=== PATIENT | female | born 1960 | race Caucasian/White ===

== ENCOUNTER 2023-12-05 08:56 | Observation (INO) | payer BC ==
--- NOTE | 2023-12-05 09:38 | ED ---
General Adult HPI - General Chief complaint: Neuro Symptoms/Deficit Stated complaint: Dizziness Time Seen by Provider: 12/05/23 09:10 Source: patient, RN notes reviewed, old records reviewed Mode of arrival: wheelchair Limitations: no limitations - History of Present Illness Initial comments: This is a 63-year-old female who presents to the emergency department with no significant past medical history. Patient comes in today stating that for the last couple of months she has intermittent episodes of squiggly lines in her left eye. Patient states last night it happened again and then went away so she went to bed. Patient states when she woke up this morning she was extremely dizzy and she felt like she was moving relative to the room. Patient also states it made her very nauseated. Patient also complained of chest palpitations but no chest pain and no difficulty breathing or shortness of breath. Patient also complained of decreased sensation on the left side of her face. Patient denied any facial droopiness. Patient had no slurred speech according to the . Patient denied any weakness or numbness of any of her extremities. Patient denied any recent fever chills or cough - Related Data Allergies Allergy/AdvReac Type Severity Reaction Status Date / Time codeine Allergy Rash/Hives Verified 12/05/23 09:06 tetracycline Allergy Rash/Hives Verified 12/05/23 09:06 Review of Systems ROS Statement: Those systems with pertinent positive or pertinent negative responses have been documented in the HPI. ROS Other: All systems not noted in ROS Statement are negative. Past Medical History Past Medical History: No Reported History History of Any Multi-Drug Resistant Organisms: None Reported Past Surgical History: Section Additional Past Surgical History / Comment(s): colon surgery, sinus surgery Past Psychological History: No Psychological Hx Reported Smoking Status: Current every day smoker Past Alcohol Use History: None Reported Past Drug Use History: None Reported General Exam - General Exam Comments Initial Comments: GENERAL: Patient is well-developed and well-nourished. Patient is nontoxic and well-hydr ated and is in mild distress. ENT: Neck is soft and supple. No significant lymphadenopathy is noted. Oropharynx is clear. Moist mucous membranes. Neck has full range of motion without eliciting any pain. EYES: The sclera were anicteric and conjunctiva were pink and moist. Extraocular movements were intact and pupils were equal round and reactive to light. Eyelids were unremarkable. PULMONARY: Unlabored respirations. Good breath sounds bilaterally. No audible rales rhonchi or wheezing was noted. CARDIOVASCULAR: There is a regular rate and rhythm without any murmurs gallops or rubs. ABDOMEN: Soft and nontender with normal bowel sounds. SKIN: Skin is clear with no lesions or rashes and otherwise unremarkable. NEUROLOGIC: Patient is alert and oriented x3. Cranial nerves II through XII are grossly intact. Motor is intact. Normal speech, volume and content. Symmetrical smile. Patient had an NIH of 1 with decrease sensation to the left side of her face MUSCULOSKELETAL: Normal extremities with adequate strength and full range of motion. No lower extremity swelling or edema. No calf tenderness. LYMPHATICS: No significant lymphadenopathy is noted PSYCHIATRIC: Normal psychiatric evaluation. Limitations: no limitations Course Vital Signs 12/05/23 12/05/23 09:03 10:03 Temperature 97.8 F Pulse Rate 87 77 Respiratory 16 18 Rate Blood Pressure 168/99 150/88 O2 Sat by Pulse 99 97 Oximetry Medical Decision Making - Medical Decision Making EKG is interpreted by myself but EKG shows a sinus rhythm at 75 bpm parables 129 QRS is 90 QT interval is 380 QTc is 408. Patient's EKG shows no ST segment elevation or depression. Patient does have 1 PAC. Was pt. sent in by a medical professional or institution (, PA, JAMMER HOOKER, urgent care, hospital, or half-way...) When possible be specific @ -No Did you speak to anyone other than the patient for history (EMS, parent, family, police, friend...)? What history was obtained from this source @ -No Did you review nursing and triage notes (agree or disagree)? Why? @ -I reviewed and agree with nursing and triage notes Were old charts reviewed (outside hosp., previous admission, EMS record, old EKG, old radiological studies, urgent care reports/EKG's, half-way records)? Report findings @ -No old charts were reviewed Differential Diagnosis (chest pain, altered mental status, abdominal pain women, abdominal pain men, vaginal bleeding, weakness, fever, dyspnea, syncope, headache, dizziness, GI bleed, back pain, seizure, CVA, palpatations, mental health, musculoskeletal)? @ -Differential CVA Ischemic stroke, hemorrhagic stroke, brain tumor, atypical migraine, Wernicke's encephalopathy, seizure, multiple sclerosis, meningitis, encephalitis, hypoglycemia, Guillain-Quan, electrolytes disturbance, myasthenia gravis.... This is not meant to be an all-inclusive list EKG interpreted by me (3pts min.). @ -As above X-rays interpreted by me (1pt min.). @ -Chest x-ray shows no acute normality CT interpreted by me (1pt min.). @ -CT of the brain shows no acute abnormality. CT angio of the head neck showed no acute abnormality U/S interpreted by me (1pt. min.). @ -None done What testing was considered but not performed or refused? (CT, X-rays, U/S, labs)? Why? @ -None What meds were considered but not given or refused? Why? @ -None Did you discuss the management of the patient with other professionals (professionals i.e. , PA, JAMMER HOOKER, lab, RT, psych nurse, social media community manager, certified medical coder, teacher, [employer] operations staff officer, community case manager)? Give summary @ -I spoke with Dr. Wood the neurointerventionist and he stated the patient should be admitted and he did not see any reason for any intervention at this time. Patient was admitted to Dr. Stark Was smoking cessation discussed for >3mins.? @ -No Was critical care preformed (if so, how long)? @ -No Were there social determinants of health that impacted care today? How? (Homelessness, low income, unemployed, alcoholism, drug addiction, transportation, low edu. Level, literacy, decrease access to med. care, skilled nursing, r ehab)? @ -No Was there de-escalation of care discussed even if they declined (Discuss DNR or withdrawal of care, Hospice)? DNR status @ -No What co-morbidities impacted this encounter? (DM, HTN, Smoking, COPD, CAD, Cancer, CVA, ARF, Chemo, Hep., AIDS, mental health diagnosis, sleep apnea, morbid obesity)? @ -None Was patient admitted / discharged? Hospital course, mention meds given and route, prescriptions, significant lab abnormalities, going to OR and other pertinent info. @ -Patient was given Antivert and Reglan because of the nausea and vertigo like symptoms. Patient did state this seemed to help. I spoke with Dr. Stark he agreed to admit the patient to the patient a consult to neurology. Patient numbness to the left side of her face was improved Undiagnosed new problem with uncertain prognosis? @ -No Drug Therapy requiring intensive monitoring for toxicity (Heparin, Nitro, Ins ulin, Cardizem)? @ -No Were any procedures done? @ -No Diagnosis/symptom? @ -TIA Acute, or Chronic, or Acute on Chronic? @ -Acute Uncomplicated (without systemic symptoms) or Complicated (systemic symptoms)? @ -Complicated Side effects of treatment? @ -No Exacerbation, Progression, or Severe Exacerbation? @ -No Poses a threat to life or bodily function? How? (Chest pain, [place], [place], pneumonia, PE, COPD, DKA, ARF, appy, cholecystitis, CVA, Diverticulitis, Homicidal, Suicidal, threat to staff... and all critical care pts) @ -No Diagnosis/symptom? @ -Palpitation Acute, or Chronic, or Acute on Chronic? @ -Acute Uncomplicated (without systemic symptoms) or Complicated (systemic symptoms)? @ -Complicated Side effects of treatment? @ -None Exacerbation, Progression, or Severe Exacerbation] @ -No Poses a threat to life or bodily function? @ -Yes this could lead to an arrhythmia and endorgan dysfunction Diagnosis/symptom? @ -Vertigo Acute, or Chronic, or Acute on Chronic? @ -Acute Uncomplicated (without systemic symptoms) or Complicated (systemic symptoms)? @ -Uncomplicated Side effects of treatment? @ -None Exacerbation, Progression, or Severe Exacerbation] @ -No Poses a threat to life or bodily function? @ -No - Lab Data Result diagrams: 12/05/23 09:34 12/05/23 09:34 Lab Results 12/05/23 12/05/23 12/05/23 Range/Units 09:34 09:34 09:34 WBC 7.4 (3.8-10.6) k/uL RBC 5.23 (3.80-5.40) m/uL Hgb 15.0 (11.4-16.0) gm/dL Hct 45.9 (34.0-46.0) % MCV 87.7 (80.0-100.0) fL MCH 28.7 (25.0-35.0) pg MCHC 32.8 (31.0-37.0) g/dL RDW 13.9 (11.5-15.5) % Plt Count 322 (150-450) k/uL MPV 7.6 Neutrophils % 56 % Lymphocytes % 33 % Monocytes % 6 % Eosinophils % 3 % Basophils % 1 % Neutrophils # 4.1 (1.3-7.7) k/uL Lymphocytes # 2.5 (1.0-4.8) k/uL Monocytes # 0.4 (0-1.0) k/uL Eosinophils # 0.2 (0-0.7) k/uL Basophils # 0.0 (0-0.2) k/uL PT 10.8 (10.0-12.5) sec INR 1.0 (<1.2) APTT 26.5 (22.0-30.0) sec Sodium 140 (137-145) mmol/L Potassium 4.3 (3.5-5.1) mmol/L Chloride 111 H (98-107) mmol/L Carbon Dioxide 22 (22-30) mmol/L Anion Gap 7 mmol/L BUN 12 (7-17) mg/dL Creatinine 0.65 (0.52-1.04) mg/dL Est GFR (CKD-EPI)AfAm >90 (>60 ml/min/1.73 sqM) Est GFR (CKD-EPI)NonAf >90 (>60 ml/min/1.73 sqM) Glucose 106 H (74-99) mg/dL Calcium 9.9 (8.4-10.2) mg/dL Total Bilirubin 0.8 (0.2-1.3) mg/dL AST 20 (14-36) U/L ALT 12 (4-34) U/L Alkaline Phosphatase 80 (38-126) U/L Creatine Kinase 85 (30-135) U/L Troponin I (0.000-0.034) ng/mL Total Protein 7.0 (6.3-8.2) g/dL Albumin 4.5 (3.5-5.0) g/dL 12/05/23 Range/Units 09:34 WBC (3.8-10.6) k/uL RBC (3.80-5.40) m/uL Hgb (11.4-16.0) gm/dL Hct (34.0-46.0) % MCV (80.0-100.0) fL MCH (25.0-35.0) pg MCHC (31.0-37.0) g/dL RDW (11.5-15.5) % Plt Count (150-450) k/uL MPV Neutrophils % % Lymphocytes % % Monocytes % % Eosinophils % % Basophils % % Neutrophils # (1.3-7.7) k/uL Lymphocytes # (1.0-4.8) k/uL Monocytes # (0-1.0) k/uL Eosinophils # (0-0.7) k/uL Basophils # (0-0.2) k/uL PT (10.0-12.5) sec INR (<1.2) APTT (22.0-30.0) sec Sodium (137-145) mmol/L Potassium (3.5-5.1) mmol/L Chloride (98-107) mmol/L Carbon Dioxide (22-30) mmol/L Anion Gap mmol/L BUN (7-17) mg/dL Creatinine (0.52-1.04) mg/dL Est GFR (CKD-EPI)AfAm (>60 ml/min/1.73 sqM) Est GFR (CKD-EPI)NonAf (>60 ml/min/1.73 sqM) Glucose (74-99) mg/dL Calcium (8.4-10.2) mg/dL Total Bilirubin (0.2-1.3) mg/dL AST (14-36) U/L ALT (4-34) U/L Alkaline Phosphatase (38-126) U/L Creatine Kinase (30-135) U/L Troponin I <0.012 (0.000-0.034) ng/mL Total Protein (6.3-8.2) g/dL Albumin (3.5-5.0) g/dL Disposition Clinical Impression: Vertigo, Palpitations, TIA (transient ischemic attack) Disposition: ADMITTED IP TO THIS HOSP Referrals: Stephanie Mayers MD [Primary Care Provider] - 1-2 days Time of Disposition: 11:24
[2023-12-05 09:44] LABS: ALT 12 U/L (4-34); AST 20 U/L (14-36); African American GFR (CKD) >90 (>60 ml/min/1.73 sqM); Albumin 4.5 g/dL (3.5-5.0); Alkaline Phosphatase 80 U/L (38-126); Anion Gap 7 mmol/L; Blood Urea Nitrogen 12 mg/dL (7-17); Calcium 9.9 mg/dL (8.4-10.2); Carbon Dioxide 22 mmol/L (22-30); Chloride 111 mmol/L (98-107); Creatine Kinase 85 U/L (30-135); Glucose 106 mg/dL (74-99); Non-African American GFR(CKD) >90 (>60 ml/min/1.73 sqM); Potassium 4.3 mmol/L (3.5-5.1); Sodium 140 mmol/L (137-145); Total Bilirubin 0.8 mg/dL (0.2-1.3)
--- NOTE | 2023-12-05 09:50 | CT ---
FINDINGS: The brachiocephalic origins are widely patent and no significant stenosis. There is no significant stenosis of the common or internal carotid arteries within the neck. There is no stenosis of the vertebral arteries. Intracranially, there is no stenosis, segmental occlusion, sizable aneurysm sac or vascular malformat ion. IMPRESSION:. No significant abnormality seen. NASCET criteria was used in interpretation of this exam?
[2023-12-05 09:52] LABS: Partial Thromboplastin Time 26.5 sec (22.0-30.0); Prothrombin Time 10.8 sec (10.0-12.5)
[2023-12-05 09:53] LABS: Basophils % (A) 1 %; Eosinophils # (A) 0.2 k/uL (0-0.7); Eosinophils % (A) 3 %; HCT 45.9 % (34.0-46.0); Lymphocytes # (A) 2.5 k/uL (1.0-4.8); Lymphocytes % (A) 33 %; MCH 28.7 pg (25.0-35.0); MCHC 32.8 g/dL (31.0-37.0); MCV 87.7 fL (80.0-100.0); Mean Platelet Volume 7.6; Monocytes # (A) 0.4 k/uL (0-1.0); Monocytes % (A) 6 %; Neutrophils # (A) 4.1 k/uL (1.3-7.7); Neutrophils % (A) 56 %; Platelet Count 322 k/uL (150-450); RBC 5.23 m/uL (3.80-5.40); RDW 13.9 % (11.5-15.5); WBC 7.4 k/uL (3.8-10.6)
--- NOTE | 2023-12-05 09:55 | CT ---
EXAMINATION TYPE: CT angio head neck DATE OF EXAM: 12/05/2023 HISTORY: Possible CVA COMPARISON: None TECHNIQUE: Multiple axial images are obtained through the head Ligament the administration of nonionic IV contrast. CT protocol was utilized. MIPS images were gener ated and reviewed. FINDINGS: FINDINGS: The brachiocephalic origins are widely patent and no significant stenosis. There is no significant stenosis of the common or internal carotid arteries within the neck. There is no stenosis of the vertebral arteries. Intracranially, there is no stenosis, segmental occlusion, sizable aneurysm sac or vascular malformat ion. IMPRESSION:. No significant abnormality seen. NASCET criteria was used in interpretation of this exam?
[2023-12-05] MEDS: MECLIZINE 25 MG TAB PO STA (09:59)
[2023-12-05] MEDS: METOCLOPRAMIDE 5 MG/ML 2 ML VIAL IVP STA (09:59)
[2023-12-05] MEDS: SODIUM CHLORIDE 0.9% 500 ML 500 ML IV STA (10:00)
--- NOTE | 2023-12-05 10:05 | XR ---
EXAMINATION TYPE: XR chest 2V DATE OF EXAM: 12/05/2023 COMPARISON: NONE HISTORY: Altered mental status TECHNIQUE: Frontal and lateral views of the chest are obtained. FINDINGS: There is no focal air space opacity, pleural effusion, or pneumothorax seen. The cardiac silhouette size is within normal limits. The osseous structures are intact. IMPRESSION: No acute cardiopulmonary process.
[2023-12-05] MEDS: ASPIRIN 325 MG TAB PO STA (12:19)
--- NOTE | 2023-12-05 14:32 | P.HPIM ---
History of Present Illness 63-year-old pleasant female came in with complaints of vertigo that started today morning along with some facial numbness in V2 and V3, trigeminal nerve areas. Patient does not have any other weakness. Partial Annalise-Hallpike maneuver made her symptoms worse but does not have any horizontal or vertical nystagmus. Patient's vertigo is associated with ringing in the ears denies any fullness in the ears. Patient denies any recent URI symptoms. Although patient has history of sinusitis in the past was treated for bacterial sinusitis about a month ago. Patient was not tested for dysdiadochokinesis and I did not do Romberg's sign as patient is quite dizzy after Huntly-Hallpike maneuver. CT of the head and neck and CT angio did not show any significant abnormality. Patient denies any facial droop. Patient's dizziness is worse with movement of the head. And constant. REVIEW OF SYSTEMS: CONSTITUTIONAL: No fever, no malaise, no fatigue. HEENT: No recent visual problems or hearing problems. Denied any sore throat. CARDIOVASCULAR: No chest pain, orthopnea, PND, no palpitations, no syncope. PULMONARY: No shortness of breath, no cough, no hemoptysis. GASTROINTESTINAL: No diarrhea, no nausea, no vomiting, no abdominal pain. NEUROLOGICAL: No headaches, no weakness, no numbness. HEMATOLOGICAL: Denies any bleeding or petechiae. GENITOURINARY: Denies any burning micturition, frequency, or urgency. MUSCULOSKELETAL/RHEUMATOLOGICAL: Denies any joint pain, swelling, or any muscle pain. ENDOCRINE: Denies any polyuria or polydipsia. The rest of the 14-point review of systems is negative. PHYSICAL EXAMINATION: GENERAL: The patient is alert and oriented x3, not in any acute distress. Well developed, well nourished. HEENT: Pupils are round and equally reacting to light. EOMI. No scleral icterus. No conjunctival pallor. Normocephalic, atraumatic. No pharyngeal erythema. No thyromegaly. CARDIOVASCULAR: S1 and S2 present. No murmurs, rubs, or gallops. PULMONARY: Chest is clear to auscultation, no wheezing or crackles. ABDOMEN: Soft, nontender, nondistended, normoactive bowel sounds. No palpable organomegaly. MUSCULOSKELETAL: No joint swelling or deformity. EXTREMITIES: No cyanosis, clubbing, or pedal edema. NEUROLOGICAL: Gross neurological examination did not reveal any focal deficits. I did not assess for any cerebellar signs SKIN: No rashes. Assessment and plan -Vertigo: May have benign positional vertigo or Mnire's disease, patient will need to be evaluated for stroke neurology was consulted initial stroke workup as mentioned above will order meclizine and aspirin. Smoking cessation counseling was provided -Hyperchloremic metabolic acidosis -Asymptomatic mild sinus bradycardia no further intervention DVT prophylaxis: Early ambulation Past Medical History Past Medical History: No Reported History History of Any Multi-Drug Resistant Organisms: None Reported Past Surgical History: Section Additional Past Surgical History / Comment(s): colon surgery, sinus surgery Past Psychological History: No Psychological Hx Reported Smoking Status: Current every day smoker Past Alcohol Use History: None Reported Past Drug Use History: None Reported Medications and Allergies Home Medications Medication Instructions Recorded Confirmed Type No Known Home Medications 12/05/23 12/05/23 History Allergies Allergy/AdvReac Type Severity Reaction Status Date / Time codeine Allergy Rash/Hives Verified 12/05/23 11:20 tetracycline Allergy Rash/Hives Verified 12/05/23 11:20 Physical Exam Vitals: Vital Signs Temp Pulse Resp BP Pulse Ox 12/05/23 12:26 52 L 16 120/70 96 12/05/23 10:03 77 18 150/88 97 12/05/23 09:03 97.8 F 87 16 168/99 99 Intake and Output 12/04/23 12/05/23 12/05/23 22:59 06:59 14:59 Other: Weight 52.617 kg Results CBC & Chem 7: 12/05/23 09:34 12/05/23 09:34 Labs: Abnormal Lab Results - Last 24 Hours (Table) 12/05/23 Range/Units 09:34 Chloride 111 H (98-107) mmol/L Glucose 106 H (74-99) mg/dL
[2023-12-05] MEDS: MECLIZINE 25 MG TAB PO PRN (14:42)
[2023-12-06 02:51] VITALS: RESP 16
[2023-12-06] MEDS: ASPIRIN 325 MG TAB PO SCH (08:46)
[2023-12-06 10:21] LABS: Chol/HDL Ratio 6.29 Ratio; LDL Cholesterol,Calculated 197.1 mg/dL (0.0-131.0)
--- NOTE | 2023-12-06 18:20 | P.CNNES ---
History of Present Illness Consult date: 12/06/23 Requesting physician: Yemi Barriga Reason for Consult: TIA History of Present Illness: Patient is a 63-year-old right-handed female, otherwise healthy came to the hospital yesterday at 8:56 AM for strokelike symptoms. Patient states that yesterday she woke up in the morning at 6 AM and felt visual disturbance in the left eye, like snakes floating across in the vision. They were not small floaters, but more like long ones. She also noticed tingling of the left cheek, and the left arm felt cold as compared to the right arm. She also noticed dizziness with it. Also noticed her heart was racing/pounding. When she was walking, she was stumbling around, fell 2 times. Her visual disturbances resolv ed by the time she arrived to the ER. The left cheek tingling and left arm symptoms persisted. Most of the symptoms have resolved this morning, but she still has some residual tingling of the left cheek region. Patient also notices that her balance was off all day yesterday but today she is better, almost back to normal. Vital signs on arrival blood pressure 168/99, pulse rate 87 temperature 97.8. Blood test shows normal CBC PT PTT, normal CMP. Troponin negative. EKG showed sinus rhythm with marked sinus arrhythmia. CT head showed no significant abnormality. No acute bleed. I personally reviewed CT head, agree with the findings. Chest x-ray showed no acute process. CTA of head and neck revealed no significant abnormality. Patient was not a candidate for tPA, as she woke up with the symptoms. Patient does not take any medication at home. Patient denies history of hypertension, although the last time she saw her primary physician, her blood pressure was up. She has hyperlipidemia, but could not tolerate cholesterol medication in the past. Patient does not take any antiplatelet medication at home. Patient has history of smoking 5 to 10 cigarettes/day since she was in her 20s. Patient also mentions that she has episodes of heart racing/palpitations off and on in the past. Patient also mentions that in the last 7 months, she had about 2 or 3 episodes in which she developed left visual disturbance like sneak floating across the vision. She saw an gaming floor supervisor, who gave her eyedrops and the symptoms went away. She has not had these visual disturbance for about last 2 to 3 months. Review of Systems Completely unremarkable except as mentioned in HPI. All pertinent positive and negative mentioned. No chest pain shortness of breath. Past Medical History Past Medical History: No Reported History History of Any Multi-Drug Resistant Organisms: None Reported Past Surgical History: Section Additional Past Surgical History / Comment(s): colon surgery, sinus surgery, c sec x2 Past Anesthesia/Blood Transfusion Reactions: No Reported Reaction Past Psychological History: No Psychological Hx Reported Smoking Status: Current every day smoker Past Alcohol Use History: None Reported Past Drug Use History: None Reported Medications and Allergies Home Medications Medication Instructions Recorded Confirmed Type Atorvastatin [Lipitor] 20 mg PO DAILY #30 tablet 12/06/23 Rx Meclizine [Antivert] 25 mg PO TID PRN #20 tab 12/06/23 Rx Allergies Allergy/AdvReac Type Severity Reaction Status Date / Time codeine Allergy Rash/Hives Verified 12/05/23 11:20 tetracycline Allergy Rash/Hives Verified 12/05/23 11:20 Physical Examination - Vital Signs Vital Signs: Vital Signs Temp Pulse Resp BP Pulse Ox 12/06/23 14:30 98.1 F 56 L 16 129/74 99 12/06/23 14:00 56 L 16 12/06/23 11:27 16 12/06/23 08:00 70 16 12/06/23 07:00 98.5 F 70 16 136/85 96 12/06/23 02:34 97.8 F 70 16 128/82 98 12/05/23 19:26 98.3 F 77 15 118/72 97 12/05/23 17:31 145/81 Intake and Output 12/06/23 12/06/23 12/06/23 06:59 14:59 22:59 Other: Voiding Method Toilet # Voids 2 4 # Bowel Movements 0 Patient is a late middle-aged female, very pleasant, in no acute distress. Patient is alert awake oriented to time place and person. Speech and language functions are normal. Patient can name and repeat very well. No aphasia or dysarthria. Attention, concentration and fund of knowledge is adequate. On cranial nerve examination, pupils are equal, round and reacting to light, visual miranda are full on confrontation, with no neglect on double simultaneous stimulation. Extraocular muscles are intact with no nystagmus. Patient has slight flattening of the left nasolabial fold. Her tongue protrudes to the midline. Palatal elevation and sensation normal, hearing and shoulder shrug normal, facial sensation normal. On muscle strength testing, there is no pronator drift and the strength is normal in arms and legs distally and proximally. Deep tendon reflexes are symmetric 1+ at the biceps, 2 brachioradialis, 2+ at the knees, 1 ankles and plantars downgoing bilaterally. Sensory to touch is equal with no neglect on double simultaneous stimulation. Cerebellar function showed some tremulousness versus mild ataxia for [id number] testing only on the left side. No dysdiadochokinesia. No ataxia for [id number] testing on either side. Tone and bulk of muscles normal. Gait deferred.. On general examination, there is no carotid bruit or murmur, S1-S2 audible. Chest is clear on consultation. Abdomen is soft nontender. No organomegaly, bowel sounds present. Peripheral pulses are present. No peripheral edema. Results - Laboratory Findings CBC and BMP: 12/05/23 09:34 12/05/23 09:34 Abnormal Lab Findings: Abnormal Labs 12/05/23 12/05/23 09:34 09:34 Chloride 111 H Glucose 106 H Cholesterol 261.00 H LDL Cholesterol, Calc 197.1 H Assessment and Plan Assessment: * Probable stroke versus TIA manifesting with dizziness, left facial tingling, left arm cold sensation, left visual disturbance (squiggly lines in the vi sean). Symptoms have mostly resolved, although still has persistent slight tingling of the left cheek region. * Intermittent episodes of squiggly lines in the vision in left eye, possible TIAs versus retinal migraine versus ocular symptoms. * Hyperlipidemia * Elevated blood pressure on arrival. * Tobacco use * Palpitations, intermittent Plan: Patient has presented with possible TIA versus small stroke. Her ABCD2 score was 4, which is a moderate risk. MRI of the brain without contrast, evaluate for acute CVA 2-D echo with bubble study to rule out PFO CTA head and neck showed: No significant stenosis, occlusion or aneurysm Fasting a.m. lipid panel cholesterol 261, LDL 197, HDL 41, triglycerides 112. Patient has significant hyperlipidemia. Patient has previously developed side effects from statins. Patient does not want to start statins at this time, wants to discuss with her primary physician. Strongly recommend addressing hyperlipidemia. Hemoglobin A1c Permissive hypertension for next 24-48 hours Start aspirin 325 mg daily. Patient was not taking any antiplatelet medication. Patient will be placed on dual antiplatelet medication for 21 days. Thereafter may stop Plavix and continue aspirin indefinitely. Pepcid 20 mg twice daily for gastric ulcer prophylaxis. Neuro checks every 2 hours. Telemetry monitoring rule out any arrhythmia. Recommend 30-day event monitoring after discharge to rule out paroxysmal atrial fibrillation. PT, OT, speech therapy DVT prophylaxis: Patient ambulatory. Recommend complete tobacco cessation. Dr. Bret Ballard will resume neurology service in the morning. Thank you for the consult. Time with Patient: Greater than 30
[2023-12-06] MEDS: CLOPIDOGREL 75 MG TAB PO SCH (18:57)
[2023-12-06] MEDS: FAMOTIDINE 20 MG TAB PO SCH (21:24)
--- NOTE | 2023-12-06 21:38 | P.PN ---
Subjective Progress Note Date: 12/06/23 63-year-old pleasant female came in with complaints of vertigo that started today morning along with some facial numbness in V2 and V3, trigeminal nerve areas. Patient does not have any other weakness. Partial Annalise-Hallpike maneuver made her symptoms worse but does not have any horizontal or vertical nystagmus. Patient's vertigo is associated with ringing in the ears denies any fullness in the ears. Patient denies any recent URI symptoms. Although patient has history of sinusitis in the past was treated for bacterial sinusitis about a month ago. Patient was not tested for dysdiadochokinesis and I did not do Romberg's sign as patient is quite dizzy after [place]-Hallpike maneuver. CT of the head and neck and CT angio did not show any significant abnormality. Patient denies any facial droop. Patient's dizziness is worse with movement of the head. And constant. 12/06/2023 Patient evaluated in follow up today. She is sitting up in the chair. Has been ambulating in the hallway without difficulty and reports improvement in her dizziness. Does report tinnitus in the left ear more than the right and is also having episodes of "squiggly lines" in visual miranda of her left eye. Has followed up with opthmology for this in the past. She is on meclizine for the symptoms of vertigo. Undergoing stroke work up. Review of Systems Constitutional: Denied any fatigue denied any fever. Cardio vascular: denied any chest pain, palpitations Gastrointestinal: denied any nausea, vomiting, diarrhea Pulmonary: Denied any shortness of breath cough Neurologic denied any new focal deficits All inpatient medications were reviewed and appropriate changes in these medications as dictated in the interval history and assessment and plan. PHYSICAL EXAMINATION: GENERAL: The patient is alert and oriented x3, not in any acute distress. Well developed, well nourished. HEENT: Pupils are round and equally reacting to light. EOMI. No scleral icterus. No conjunctival pallor. Normocephalic, atraumatic. No pharyngeal erythema. No thyromegaly. CARDIOVASCULAR: S1 and S2 present. No murmurs, rubs, or gallops. PULMONARY: Chest is clear to auscultation, no wheezing or crackles. ABDOMEN: Soft, nontender, nondistended, normoactive bowel sounds. No palpable organomegaly. MUSCULOSKELETAL: No joint swelling or deformity. EXTREMITIES: No cyanosis, clubbing, or pedal edema. NEUROLOGICAL: Gross neurological examination did not reveal any focal deficits. I did not assess for any cerebellar signs SKIN: No rashes. Assessment and plan -Vertigo: May have benign positional vertigo or Mnire's disease, patient will need to be evaluated for stroke neurology was consulted initial stroke workup as mentioned above will order meclizine and aspirin. Smoking cessation counseling was provided -Hyperchloremic metabolic acidosis -Asymptomatic mild sinus bradycardia no further intervention DVT prophylaxis: Early ambulation Patient scheduled to undergo brain MRI on thursday, echocardiogram with bubble study to complete stroke work up. hemoglobin A1C pending, lipid panel has been completed; recommending statin on discharge. Neurology recommending event monitor on discharge to rule out any arrythmia. Patient has noted palpitations this hospital stay has been in normal sinus rhythm. Will continue with cardiac monitoring while inpatient. Continue with meclizine TID. Neurology has added plavix. The impression and plan of care has been dictated by Myrna Perez, Nurse Practitioner as directed. Dr. Lincoln MD I have performed a history and physical examination and medical decision making of this patient, discussed the same with the dictator, and agree with the dictators assessment and plan as written, documented as a scribe. Based on total visit time, I have performed more than 50% of this visit. Objective - Vital Signs Vital signs: Vital Signs Temp 98.1 F 12/06/23 14:30 Pulse 56 L 12/06/23 14:30 Resp 16 12/06/23 14:30 BP 129/74 12/06/23 14:30 Pulse Ox 99 12/06/23 14:30 FiO2 Intake & Output 12/06/23 12/06/23 12/07/23 06:59 18:59 06:59 Other: Voiding Method Toilet # Voids 2 4 1 # Bowel Movements 0 0 - Labs CBC & Chem 7: 12/05/23 09:34 12/05/23 09:34 Labs: Abnormal Lab Results - Last 24 Hours (Table) 12/05/23 Range/Units 09:34 Cholesterol 261.00 H (0.00-200.00) mg/dL LDL Cholesterol, Calc 197.1 H (0.0-131.0) mg/dL Assessment and Plan Time with Patient: Less than 30
[2023-12-07 07:44] VITALS: BP 150/81; PULSE 73; TEMP 99
--- NOTE | 2023-12-07 11:00 | MR ---
EXAMINATION TYPE: MR brain wo con DATE OF EXAM: 12/07/2023 10:41 AM CLINICAL INDICATION:Female, 63 years old with history of Stroke vs TIA; PHH, Neuro deficit, evaluate for stroke. COMPARISON: 12/05/2023. TECHNIQUE: Multi planar, multi sequence imaging was performed through the brain including: T1, T2, In version recovery, Diffusion weighted imaging, and gradient echo imaging. No gadolinium was given. FINDINGS: Mild cerebral atrophy with proportional dilation of ventricular system. Scattered foci of high T2 s ignal intensity are seen within the periventricular white matter. Midline structures show no abnormal ity. Diffusion-weighted imaging shows no evidence of restricted diffusion. The susceptibility weighte d images do not reveal any evidence for micro-hemorrhage. The bone marrow signal is within normal limits. Paranasal sinuses and mastoid air cells: No significant paranasal sinus disease. Visualized orbits: Orbital contents are intact. IMPRESSION: 1. No evidence of intracranial mass or acute/subacute infarct. 2. Nonspecific white matter changes, likely secondary to small vessel ischemic disease.
[2023-12-07 15:14] VITALS: BMI 19.9
--- NOTE | 2023-12-07 15:46 | P.PN ---
Subjective Progress Note Date: 12/07/23 I am seeing the patient for the first time during this admission. Please refer to Dr. Allen's note for further details. According to patient she had an episode of dizziness, seeing floaters over the left eye and left face numbness. She feels back to baseline. Objective - Vital Signs Vital signs: Vital Signs Temp 99.0 F 12/07/23 07:00 Pulse 73 12/07/23 07:00 Resp 16 12/07/23 07:00 BP 150/81 12/07/23 07:00 Pulse Ox 98 12/07/23 07:00 FiO2 Intake & Output 12/06/23 12/07/23 12/07/23 18:59 06:59 18:59 Weight 52.617 kg Other: Voiding Method Toilet Toilet # Voids 4 2 4 # Bowel Movements 0 0 0 - Exam GENERAL: The patient is lying in bed and is not in acute distress. NEUROLOGICAL: Higher mental function: The patient is awake, alert, oriented to self, place and time. Patient is following commands. No aphasia and no neglect. Cranial nerves: The pupils are round, equal and reactive to light and accommodation. Visual miranda are full to confrontation throughout. Extraocular movement is intact no nystagmus is noted. Facial sensation is normal to touch throughout. The facial strength is normal throughout. . Tongue is midline and moved [id number] without any difficulty. No dysarthria is noted. Shoulder shrug is normal bilaterally. Motor: The strength is 5 over 5 throughout. Normal tone and bulk. Cerebellum: Normal finger to nose heel to leyva bilaterally. Sensation: Sensation is normal to touch throughout. - Labs CBC & Chem 7: 12/05/23 09:34 12/05/23 09:34 Labs: Abnormal Lab Results - Last 24 Hours (Table) 12/05/23 Range/Units 09:39 Hemoglobin A1c 6.1 H (<=6.0) % Assessment and Plan Assessment: * Probable TIA manifesting with dizziness, left facial tingling, left arm cold sensation, left visual disturbance (squiggly lines in the vision). Symptoms have mostly resolved. MRI Brain is unremarkable for acute process. * Intermittent episodes of squiggly lines in the vision in left eye, possible TIAs versus retinal migraine versus ocular symptoms. * Hyperlipidemia * Elevated blood pressure on arrival. * Tobacco use * Palpitations, intermittent Plan: Her ABCD2 score was 4, which is a moderate risk. MRI of the brain without contrast, evaluate for acute CVA: It is reported as no evidence of intracranial mass or acute/subacute infarct. Nonspecific white matter changes. I personally reviewed the MRI and agree with the report 2-D echo with bubble study to rule out PFO CTA head and neck showed: No significant stenosis, occlusion or aneurysm Fasting a.m. lipid panel cholesterol 261, LDL 197, HDL 41, triglycerides 112. Patient has significant hyperlipidemia. Patient has previously developed side effects from statins. Patient does not want to start statins at this time, wants to discuss with her primary physician. Strongly recommend addressing hyperlipidemia. Hemoglobin A1c Permissive hypertension for next 24-48 hours Start aspirin 325 mg daily. Patient was not taking any antiplatelet medication. Patient will be placed on dual antiplatelet medication for 21 days. Thereafter may stop Plavix and continue aspirin indefinitely. Pepcid 20 mg twice daily for gastric ulcer prophylaxis. Neuro checks every 2 hours. Telemetry monitoring rule out any arrhythmia. Recommend 30-day event monitoring after discharge to rule out paroxysmal atrial fibrillation. PT, OT, speech therapy DVT prophylaxis: Patient ambulatory. Recommend complete tobacco cessation. Commend the patient to follow-up with a neurologist as an outpatient within 3 weeks. Plan discussed with the patient and her significant other is at bedside If 2D echo is normal then no further neurological workup and the patient is cleared from neurologic perspective. Time with Patient: Less than 30
--- NOTE | 2023-12-07 18:09 | CA ---
Transthoracic Echo Report Name: Lesa Llanos Age: 63 Gender: F : 1960 Exam Date: 12/07/2023 08:57 Exam Location: [facility] Ht (in): 64 Wt (lb): 116 Ordering Physician: Ramona Allen MD Attending/Referring Phys: Process Design Engineer Stephanie Ferraar RDCS Procedure CPT: Indications: stroke/tia Cardiac Hx: Technical Quality: Good Contrast 1: Total Dose (mL): Contrast 2: Total Dose (mL): MEASUREMENTS (Male / Female) Normal Values 2D ECHO LV Diastolic Diameter PLAX 4.4 cm 4.2 - 5.9 / 3.9 - 5.3 cm LV Systolic Diameter PLAX 2.6 cm IVS Diastolic Thickness 1.1 cm 0.6 - 1.0 / 0.6 - 0.9 cm LVPW Diastolic Thickness 0.8 cm 0.6 - 1.0 / 0.6 - 0.9 cm LV Relative Wall Thickness 0.4 LVOT Diameter 2.1 cm LV Diastolic Volume MOD BP 85.1 cm??? 67 - 155 / 56 - 104 cm??? LV Systolic Volume MOD BP 28.7 cm??? 22 - 58 / 19 - 49 cm??? LV Ejection Fraction MOD BP 66.2 % >= 55 % LV Cardiac Index MOD BP 2416.5 cm???/min???m??? LV Diastolic Volume MOD 4C 93.9 cm??? LV Systolic Volume MOD 4C 31.0 cm??? LV Ejection Fraction MOD 4C 66.9 % LV Cardiac Index MOD 4C 2697.6 cm???/min???m??? LV Diastolic Length 4C 7.7 cm LV Systolic Length 4C 5.7 cm LV Diastolic Volume MOD 2C 71.5 cm??? LV Systolic Volume MOD 2C 25.0 cm??? LV Ejection Fraction MOD 2C 65.1 % LV Cardiac Index MOD 2C 1996.8 cm???/min???m??? LV Diastolic Length 2C 7.1 cm LV Systolic Length 2C 5.3 cm LA Volume 31.5 cm??? 18 - 58 / 22 - 52 cm??? LA Volume Index 20.5 cm???/m??? 16 - 28 cm???/m??? DOPPLER AV Peak Velocity 161.7 cm/s AV Peak Gradient 10.5 mmHg AV Mean Velocity 116.1 cm/s AV Mean Gradient 6.0 mmHg AV Velocity Time Integral 33.8 cm LVOT Peak Velocity 109.4 cm/s LVOT Peak Gradient 4.8 mmHg LVOT Velocity Time Integral 22.1 cm LVOT Stroke Volume 78.2 cm??? LVOT Stroke Volume Index 50.4 ml/m??? LVOT Cardiac Index 3355.1 cm???/min???m??? AV Area Cont Eq vti 2.3 cm??? AV Area Cont Eq pk 2.4 cm??? MV Area PHT 2.8 cm??? Mitral E Point Velocity 54.5 cm/s Mitral A Point Velocity 70.7 cm/s Mitral E to A Ratio 0.8 MV Deceleration Time 268.8 ms TR Peak Velocity 244.9 cm/s TR Peak Gradient 24.0 mmHg Right Atrial Pressure 5.0 mmHg Pulmonary Artery Systolic Pressu 29.0 mmHg Right Ventricular Systolic Press 29.0 mmHg PV Peak Velocity 80.9 cm/s PV Peak Gradient 2.6 mmHg FINDINGS Left Ventricle Left ventricular ejection fraction is estimated at 60-65 %. Mildly increased septal wall thickness. Left ventricular cavity size normal. No obvious regional wall motion abnormalities. Right Ventricle Normal right ventricular size and function. Right ventricular systolic pressure within normal limits. Right Atrium Normal right atrial size. Left Atrium Normal left atrial size. Mitral Valve Structurally normal mitral valve. No evidence for mitral valve prolapse. No mitral stenosis. Trace mitral regurgitation. Aortic Valve Trileaflet aortic valve. No aortic stenosis. Trace aortic regurgitation. Tricuspid Valve Structurally normal tricuspid valve. No tricuspid stenosis. Mild tricuspid regurgitation. Pulmonic Valve Structurally normal pulmonic valve. No pulmonic stenosis. Trace pulmonic regurgitation. Pericardium No pericardial effusion. Aorta Aortic annulus normal. Ascending aorta not well visualized. CONCLUSIONS Normal LV function Previewed by: Dr. Carlos De La Cruz MD (Electronically Signed) Final Date: 07 December 2023 18:07
--- NOTE | 2023-12-09 23:09 | P.DS ---
Providers Date of admission: 12/05/23 11:28 Attending physician: Varghese Stark Consults: 12/05/23 11:27 Consult Physician Urgent Consulting Provider: Ramona Allen Reason/Comments: TIA Do you want consulting provider notified?: Yes Primary care physician: Stephanie Mayers Hospital Course: Final Diagnosis -Vertigo with left facial tingling, left visual disturbance felt to be a TIA. -Intermittent episodes of squiggly lines in the vision in left eye, possible TIAs vs. other -Smoking cessation counseling was provided -Hyperchloremic metabolic acidosis -Asymptomatic mild sinus bradycardia no further intervention -Hyperlipidemia -Palpitations Discharge Disposition Patient is medically stable for discharge. Recommend 30-day event monitoring after discharge to rule out paroxysmal atrial fibrillation. Start aspirin 325 mg daily. Patient was not taking any antiplatelet medication. Patient will be placed on dual antiplatelet medication for 21 days. Thereafter may stop Plavix and continue aspirin indefinitely. Patient is recommended to follow up with a neurologist in 2 to 3 weeks outpatient. Referred back to her opthmologist. Patient to follow up with her PCP Dr Stephanie Mayers in 1 to 2 days. Hospital Course 63-year-old pleasant female came in with complaints of vertigo along with some facial numbness in V2 and V3, trigeminal nerve areas. Patient does not have any other weakness. Partial [place]-Hallpike maneuver made her symptoms worse but does not have any horizontal or vertical nystagmus. Patient's vertigo is associated with ringing in the ears denies any fullness in the ears. Patient denies any recent URI symptoms. Although patient has history of sinusitis in the past was treated for bacterial sinusitis about a month ago. Patient was not tested for dysdiadochokinesis and I did not do Romberg's sign as patient is quite dizzy after Annalise-Hallpike maneuver. CT of the head and neck and CT angio did not show any significant abnormality. Patient denies any facial droop. Patient's dizziness is worse with movement of the head. Started on meclizine. Admitted with neurology consultation. Patient had full stroke work up. Echocardiogram and bubble study MRI of the brain without contrast, evaluate for acute CVA: It is reported as no evidence of intracranial mass or acute/subacute infarct. Nonspecific white matter changes. Echocardiogram reveals normal LV function. Dong cheek has been up ambulating in the hallway. Her symptoms have mostly resolved. Not feeling dizzy anymore. As above recommended for aspirin plavix and statin therapy as primary stroke prevention. Patient will wear an event monitor for 30 days to rule out a cardiac arrythmia, has been feeling palpitations. Patient has no shortness of breath, no chest pain. Alert x 3. Hemodynamically stable. She will be discharged home. Please see medication reconciliation for a list of current medications. Thank you for allowing us to participate in the care of this patient. The impression and plan of care has been dictated by Myrna Perez, Nurse Practitioner as directed. Dr. Lincoln MD I have performed a history and physical examination and medical decision making of this patient, discussed the same with the dictator, and agree with the dictators assessment and plan as written, documented as a scribe. Based on total visit time, I have performed more than 50% of this visit. Patient Condition at Discharge: Stable Plan - Discharge Summary Discharge Rx Participant: No New Discharge Prescriptions: New Meclizine [Antivert] 25 mg PO TID PRN #20 tab PRN Reason: Vertigo Atorvastatin [Lipitor] 20 mg PO DAILY #30 tablet Aspirin 325 mg PO DAILY #30 tab Clopidogrel [Plavix] 75 mg PO DAILY #21 tab Discharge Medication List Atorvastatin [Lipitor] 20 mg PO DAILY #30 tablet 12/06/23 [Rx] Meclizine [Antivert] 25 mg PO TID PRN #20 tab 12/06/23 [Rx] Aspirin 325 mg PO DAILY #30 tab 12/07/23 [Rx] Clopidogrel [Plavix] 75 mg PO DAILY #21 tab 12/07/23 [Rx] Follow up Appointment(s)/Referral(s): Jordan Foley DO [Doctor of Osteopathic Medicine] - 1 Week (ENT specialist ) Peng Grewal DO [STAFF PHYSICIAN] - 1 Week (Neurology) Stephanie Mayers MD [Primary Care Provider] - 1-2 days Patient Instructions/Handouts: Transient Ischemic Attack (DC), Benign Paroxysmal Positional Vertigo (DC) Activity/Diet/Wound Care/Special Instructions: Follow up with your opthmologist Follow up with neurologist Continue aspirin and plavix together for 21 days, after discontinue the plavix and continue the aspirin. Discharge Disposition: HOME SELF-CARE
== END 2023-12-07 19:00 | disposition home or self-care (01) ==
LOC: EC 08:56 → 6NMEDSUR 11:28
PROVIDERS: ADMIT Internal Medicine; ATTEND Internal Medicine
DX: R42 Dizziness and giddiness (principal); H43.392 Other vitreous opacities, left eye; E87.20 Acidosis, unspecified; R20.2 Paresthesia of skin; R20.0 Anesthesia of skin; H93.13 Tinnitus, bilateral; R00.1 Bradycardia, unspecified; E78.5 Hyperlipidemia, unspecified; R00.2 Palpitations; R00.0 Tachycardia, unspecified; R11.0 Nausea; R03.0 Elevated blood-pressure reading, without diagnosis of hypertension; F17.210 Nicotine dependence, cigarettes, uncomplicated; Z88.1 Allergy status to other antibiotic agents; Z88.5 Allergy status to narcotic agent; Z87.09 Personal history of other diseases of the respiratory system; Z71.6 Tobacco abuse counseling; W01.0XXA Fall on same level from slipping, tripping and stumbling without subsequent striking against object, initial encounter
CPT/HCPCS: 96374; 99285; 36415; 93005; 93306; 80061; 80053; 82550; 84484; 85025; 85610; 85730; 83036; 71046; 70496; 70450; 70498; 70551; G0378 ×3; J2765; Q9967